=== PATIENT | female | born 1980 | race Caucasian/White ===

== ENCOUNTER → 2019-06-04 15:31 | Outpatient (CLI) | payer BC, SELFPAY | PROVIDERS: Visit Provider Obstetrics & Gynecology | DX: N39.0 Urinary tract infection, site not specified (principal) | CPT/HCPCS: 87086 ==

== ENCOUNTER → 2020-02-12 | Outpatient (CLI) | payer OTHER, SELFPAY ==
--- NOTE | 2020-02-11 08:30 | FLU_PTH ---
PATIENT: MARI ELLIS LOC: [facility] U#:[id number] AGE/SX: 40/F ROOM: RE02/12/[address]: Dr. Leslee Quick MD : 1980 BED: DIS: 02/12/2020 SPEC #: [id number] RECD: 02/12/20 12:20 STATUS: DIVINE REMaulik #: [id number] JACLYN: 02/11/20 08:[address]: Leslee Quick DEPT: CYTOLOGY RECD BY: Dagoberto Lees ENTERED: 02/15/20 08:20 SP TYPE: Fluid OTHR DR: Dr. Elio Sosa, DO No Primary Care Phys Tissues: Right breast, NOS Procedures: Special Stain Group II Surgery Specimen Level IV Cytospin Fluid HEADER OPERATION: Ultrasound-guided right breast cyst aspiration PRE-OP DIAGNOSIS: Right breast cyst TISSUE SUBMITTED: Right breast cyst aspirate DIAGNOSIS CYTOLOGY Right breast cyst, ultrasound-guided FNA (cytospin and cell block): Consistent with fibrocystic changes. Negative for malignant cells. See cytology study and comment. LUCIO:ruddy 02/16/20 COMMENT Correlation with clinical, radiologic findings and appropriate follow up are necessary. CYTOLOGY STUDY Slides are reviewed. The specimen consists of benign ductal cell with apocrine metaplasia and macrophages. CYTOLOGY GROSS Received is 20 ml of brown cloudy fluid labeled with the patient's name and and designated per the requisition as right breast cyst. Submitted for cytology preparation including cell block. / ruddy 02/15/20 TC:5 CPT: 14870, 90613
== END | disposition home or self-care (01) ==
LOC: LABSPEC 13:28
PROVIDERS: Referring Provider Surgery; Visit Provider Surgery
DX: N60.01 Solitary cyst of right breast (principal)
CPT/HCPCS: 88108; 88305; 88313

== ENCOUNTER → 2020-06-06 | Outpatient (CLI) | payer OTHER, SELFPAY | END | disposition home or self-care (01) | LOC: LABSPEC 13:50 | PROVIDERS: Visit Provider Student in an Organized Health Care Education/Training Program | DX: R10.30 Lower abdominal pain, unspecified (principal) | CPT/HCPCS: 87086 ==

== ENCOUNTER → 2020-06-23 | Outpatient (CLI) | payer OTHER, SELFPAY ==
[2020-06-29 15:13] LABS: HPV Reflexed? NOT INDICATED
== END | disposition home or self-care (01) ==
LOC: LABSPEC 14:48
PROVIDERS: Visit Provider Obstetrics & Gynecology
DX: Z12.4 Encounter for screening for malignant neoplasm of cervix (principal)
CPT/HCPCS: 88175; G0145